=== PATIENT | female | born 1955 | race Caucasian/White ===

== ENCOUNTER → 2016-10-10 17:09 | Outpatient (CLI) | payer SELFPAY ==
[2013-01-15 12:53] VITALS: BMI 26.8
[~2016-10-10 17:09] MED LIST: ASPIRIN325 MG PO; XANAX0.25 MG PO
== END | disposition home or self-care (01) ==
LOC: D.MAMMO 16:00
DX: Z12.31 Encounter for screening mammogram for malignant neoplasm of breast (principal)

== ENCOUNTER → 2019-01-17 23:01 | Outpatient (CLI) | payer SELFPAY ==
[2013-01-15 12:53] VITALS: BMI 26.8
== END | disposition home or self-care (01) ==
LOC: D.MAMMO 16:00
PROVIDERS: ATTEND Family Medicine
DX: Z12.31 Encounter for screening mammogram for malignant neoplasm of breast (principal)